=== PATIENT | female | born 1960 | race Caucasian/White ===

== ENCOUNTER 2020-01-10 11:22 | Emergency (ER) | payer BC ==
[2020-01-10 11:35] VITALS: BP 127/80; PULSE 71
[2020-01-10] MEDS ORDERED: Metoclopramide 10 MG/2 ML SDV IVPUSH ONE (12:07)
[2020-01-10] MEDS ORDERED: Dicyclomine 10 MG Cap PO ONE (12:09)
[2020-01-10] MEDS ORDERED: Sodium Chloride 0.9% 1,000 ML IV SCH (12:15)
--- NOTE | 2020-01-10 12:16 | EDM.PDOC ---
ED HPI GENERAL MEDICAL PROBLEM - General Chief Complaint: Gastrointestinal Problem Stated Complaint: SOB,CRAMPING,DIARRHEA Time Seen by Provider: 01/10/20 11:50 Source of Information: Reports: Patient, RN Notes Reviewed History Limitations: Reports: No Limitations - History of Present Illness INITIAL COMMENTS - FREE TEXT/NARRATIVE: Patient is a 59-year-old female who presents to the ED for the evaluation of ongoing diarrhea. Patient notes that this all started on Thursday, and she states that she had around 7 loose/watery stools on Thursday alone. She does note that she had some bright red bleeding per rectum as well. The patient states that she is having pretty diffuse abdominal cramping, that is sharp at times, and better at some other times. Patient states that she is somewhat dizzy/lightheaded when she stands, little bit nauseated, but no vomiting. Patient notes a positive history of C. difficile around 6 years ago, but she denies any sort of recent antibiotic use. Patient did state that she has a issue with chronic headaches, did have a migraine Thursday and Thursday and took Imitrex for this and it seemed to make the headaches better. Patient states she does feel a little bit short of breath/fatigued when she tries to walk, but was wondering if this was not due to the dehydration. Patient states she has been taking some Tylenol for her pains, and it has not really helped much. The notes that he believes she may have had some raw chicken, or farm eggs he was wondering that did not cause some of her issues. Patient does have a positive history for diverticulosis, C. difficile, and endometriosis. Patient has had 2 laparoscopic surgeries for the endometriosis, and a hysterectomy. Patient had a colonoscopy, and was told she had diverticulosis, and longer intestines than normal. Patient's primary care provider is in [facility]. Bilateral Lower Abdomen Pain Score (Numeric/FACES): 5 - Related Data Allergies Allergy/AdvReac Type Severity Reaction Status Date / Time alfalfa Allergy Headache Verified 01/10/20 11:38 banana Allergy Headache Verified 01/10/20 11:38 harrison Allergy Headache Verified 01/10/20 11:38 cantaloupe Allergy Headache Verified 01/10/20 11:38 celery Allergy Headache Verified 01/10/20 11:38 redding Allergy Headache Verified 01/10/20 11:38 chocolate flavor Allergy Headache Verified 01/10/20 11:38 cranberry Allergy Headache Verified 01/10/20 11:38 lentils Allergy Headache Verified 01/10/20 11:38 milk Allergy Headache Verified 01/10/20 11:38 pumpkin Allergy Headache Verified 01/10/20 11:38 sesame seed Allergy Headache Verified 01/10/20 11:38 tomato Allergy Headache Verified 01/10/20 11:38 tree nut [Pecans] Allergy Headache Verified 01/10/20 11:38 walnut Allergy Headache Verified 01/10/20 11:38 Yeast Allergy Headache Verified 01/10/20 11:38 Home Meds: Home Meds Acetaminophen [Mapap] 500 mg PO DAILY PRN 02/11/16 [History] Clobetasol [Clobetasol 0.05%] 1 appful VAG DAILY 02/11/16 [History] Estrogens, Conjugated [Premarin Vaginal Crm] 1 appful VAG DAILY 02/11/16 [ History] Multivit,Calc,Mins/Iron/Folic [Women's Daily Formula Caplet] 1 tab PO DAILY [History] SUMAtriptan [Imitrex] 25 mg PO DAILY PRN 01/10/20 [History] guaiFEN/Phenyleph/Acetaminophn [Sudafed PE Head Cngst-Mucus Tb] 1 tab PO Q4HR [History] Past Medical History HEENT History: Reports: Impaired Vision Other HEENT History: wears glasses Respiratory History: Reports: SOB Gastrointestinal History: Reports: Diverticulosis, GERD BABCOCK TESTER History: Reports: Endometriosis Musculoskeletal History: Reports: Other (See Below) Other Musculoskeletal History: frozen shoulder, tendonitis in wrist Neurological History: Reports: Migraines Psychiatric History: Reports: Anxiety - Infectious Disease History Infectious Disease History: Reports: C-Difficile, Chicken Pox, Measles - Past Surgical History HEENT Surgical History: Reports: Cataract Surgery, Naso-Sinus Surgery GI Surgical History: Reports: Appendectomy, Colonoscopy Female Surgical History: Reports: Hysterectomy, Other (See Below) Other Female Surgeries/Procedures: laparoscopy x 2 for endometriosis Social & Family History - Family History Family Medical History: Noncontributory - Tobacco Use Smoking Status *Q: Former Smoker Used Tobacco, but Quit: Yes Month/Year Tobacco Last Used: 1980 - Caffeine Use Caffeine Use: Reports: Coffee, Tea - Recreational Drug Use Recreational Drug Use: Yes Recreational Drug Type: Reports: Marijuana/Hashish - Living Situation & Occupation Living situation: Reports: , with Family Occupation: Unemployed ED ROS GENERAL - Review of Systems Review Of Systems: See Below Constitutional: Reports: Chills, Fatigue (generalized), Decreased Appetite. Denies: Fever Respiratory: Reports: Shortness of Breath (while walking) GI/Abdominal: Reports: Abdominal Pain (generalized), Bloody Stool (bright red loose bloody stools per rectum, pt had pictures), Diarrhea, Decreased Appetite, Nausea. Denies: Vomiting : Denies: Dysuria, Frequency, Urgency Neurological: Reports: Dizziness ED EXAM, GI/ABD - Physical Exam Exam: See Below Exam Limited By: No Limitations General Appearance: Alert, WD/WN, No Apparent Distress Eyes: Bilateral: Normal Appearance Ears: Normal External Exam Nose: Normal Inspection Throat/Mouth: Normal Inspection, Normal Lips, Normal Teeth, Normal Gums, Normal Oropharynx, Normal Voice, No Airway Compromise Head: Atraumatic, Normocephalic Neck: Normal Inspection Respiratory/Chest: No Respiratory Distress, Lungs Clear, Normal Breath Sounds, No Accessory Muscle Use, Chest Non-Tender Cardiovascular: Normal Peripheral Pulses, Regular Rate, Rhythm, No Murmur GI/Abdominal Exam: Normal Bowel Sounds, Soft, No Distention, No Mass, Tender ( generalized tenderness) Rectal (Female) Exam: Deferred, Bloody Stool (pt did show me pictures of her stools) Extremities: Normal Inspection, Normal Capillary Refill Neurological: Alert, Oriented, Normal Cognition, No Motor/Sensory Deficits Psychiatric: Anxious (pt appears apprehensive, otherwise within normal limits) Skin Exam: Warm, Dry, Intact, Normal Color, No Rash Course - Vital Signs Last Recorded V/S: Last Vital Signs Temp 98.6 F 01/10/20 11:30 Pulse 71 01/10/20 11:30 Resp 18 01/10/20 11:30 BP 127/80 01/10/20 11:30 Pulse Ox 100 01/10/20 11:30 - Orders/Labs/Meds Orders: Active Orders 24 hr Category Date Time Status STOOL CULTURE/SHIGA TOXIN [MREF] Stat Lab 01/10/20 12:08 Ordered Sodium Chloride 0.9% [Normal Saline] 1,000 ml Med 01/10/20 12:15 Active IV ASDIRECTED Medication Orders Sodium Chloride (Normal Saline) 1,000 mls @ 999 mls/hr IV ASDIRECTED [place]ER[place] Last Admin: 01/10/20 12:20 Dose: 999 mls/hr Labs: Laboratory Tests 01/10/20 01/10/20 01/10/20 Range/Units 12:20 12:20 13:00 WBC 5.43 (3.98-10.04) K/mm3 RBC 4.89 (3.98-5.22) M/mm3 Hgb 14.8 (11.2-15.7) gm/dl Hct 43.5 (34.1-44.9) % MCV 89.0 (79.4-94.8) fl MCH 30.3 (25.6-32.2) pg MCHC 34.0 (32.2-35.5) g/dl RDW Std Deviation 40.7 (36.4-46.3) fL Plt Count 201 (182-369) K/mm3 MPV 10.3 (9.4-12.3) fl Neutrophils % (Manual) 68 H (40-60) % Band Neutrophils % 0 (0-10) % Lymphocytes % (Manual) 26 (20-40) % Atypical Lymphs % 0 % Monocytes % (Manual) 5 (2-10) % Eosinophils % (Manual) 0 L (0.7-5.8) % Basophils % (Manual) 1 (0.1-1.2) Platelet Estimate Adequate Plt Morphology Comment Normal RBC Morph Comment Normal Sodium 142 (136-145) mEq/L Potassium 4.3 (3.5-5.1) mEq/L Chloride 107 (98-107) mEq/L Carbon Dioxide 27 (21-32) mEq/L Anion Gap 12.3 (5-15) BUN 12 (7-18) mg/dL Creatinine 0.9 (0.55-1.02) mg/dL Est Cr Clr Drug Dosing 57.40 mL/min Estimated GFR (MDRD) > 60 (>60) mL/min BUN/Creatinine Ratio 13.3 L (14-18) Glucose 96 (74-106) mg/dL Calcium 9.2 (8.5-10.1) mg/dL Total Bilirubin 0.6 (0.2-1.0) mg/dL AST 14 L (15-37) U/L ALT 29 (14-59) U/L Alkaline Phosphatase 69 (46-116) U/L Total Protein 7.5 (6.4-8.2) g/dl Albumin 3.9 (3.4-5.0) g/dl Globulin 3.6 gm/dL Albumin/Globulin Ratio 1.1 (1-2) Urine Color Yellow (Yellow) Urine Appearance Clear (Clear) Urine pH 7.5 (5.0-8.0) Ur Specific Petty 1.020 (1.005-1.030) Urine Protein Negative (Negative) Urine Glucose (UA) Negative (Negative) Urine Ketones Negative (Negative) Urine Occult Blood Negative (Negative) Urine Nitrite Negative (Negative) Urine Bilirubin Negative (Negative) Urine Urobilinogen 0.2 (0.2-1.0) Ur Leukocyte Esterase Negative (Negative) Urine RBC Not seen (0-5) /hpf Urine WBC Not seen (0-5) /hpf Ur Squamous Epith Cells 0-5 (0-5) /hpf Urine Bacteria Not seen (FEW) /hpf Urine Mucus Not seen (FEW) /hpf C.difficile [id number] C. difficile Tox (PCR) 01/10/20 Range/Units 13:00 WBC (3.98-10.04) K/mm3 RBC (3.98-5.22) M/mm3 Hgb (11.2-15.7) gm/dl Hct (34.1-44.9) % MCV (79.4-94.8) fl MCH (25.6-32.2) pg MCHC (32.2-35.5) g/dl RDW Std Deviation (36.4-46.3) fL Plt Count (182-369) K/mm3 MPV (9.4-12.3) fl Neutrophils % (Manual) (40-60) % Band Neutrophils % (0-10) % Lymphocytes % (Manual) (20-40) % Atypical Lymphs % % Monocytes % (Manual) (2-10) % Eosinophils % (Manual) (0.7-5.8) % Basophils % (Manual) (0.1-1.2) Platelet Estimate Plt Morphology Comment RBC Morph Comment Sodium (136-145) mEq/L Potassium (3.5-5.1) mEq/L Chloride (98-107) mEq/L Carbon Dioxide (21-32) mEq/L Anion Gap (5-15) BUN (7-18) mg/dL Creatinine (0.55-1.02) mg/dL Est Cr Clr Drug Dosing mL/min Estimated GFR (MDRD) (>60) mL/min BUN/Creatinine Ratio (14-18) Glucose (74-106) mg/dL Calcium (8.5-10.1) mg/dL Total Bilirubin (0.2-1.0) mg/dL AST (15-37) U/L ALT (14-59) U/L Alkaline Phosphatase (46-116) U/L Total Protein (6.4-8.2) g/dl Albumin (3.4-5.0) g/dl Globulin gm/dL Albumin/Globulin Ratio (1-2) Urine Color (Yellow) Urine Appearance (Clear) Urine pH (5.0-8.0) Ur Specific Petty (1.005-1.030) Urine Protein (Negative) Urine Glucose (UA) (Negative) Urine Ketones (Negative) Urine Occult Blood (Negative) Urine Nitrite (Negative) Urine Bilirubin (Negative) Urine Urobilinogen (0.2-1.0) Ur Leukocyte Esterase (Negative) Urine RBC (0-5) /hpf Urine WBC (0-5) /hpf Ur Squamous Epith Cells (0-5) /hpf Urine Bacteria (FEW) /hpf Urine Mucus (FEW) /hpf C.difficile [id number] Presumptive negative C. difficile Tox (PCR) Negative Meds: Medications Generic Name Dose Route Start Last Admin Trade Name Freq PRN Reason Stop Dose Admin Sodium Chloride 1,000 mls @ 999 mls/hr 01/10/20 12:15 01/10/20 12:20 Normal Saline IV 999 mls/hr ASDIRECTED GERMANIA Administration Discontinued Medications Generic Name Dose Route Start Last Admin Trade Name Freq PRN Reason Stop Dose Admin Diatrizoate Meglum/Diatrizoate Sod 90 ml 01/10/20 12:38 01/10/20 13:37 Gastrografin 37% PO 01/10/20 12:39 45 ml ONETIME ONE Administration Dicyclomine HCl 20 mg 01/10/20 12:09 01/10/20 12:20 Bentyl PO 01/10/20 12:10 20 mg ONETIME ONE Administration Hydromorphone HCl 0.5 mg 01/10/20 14:46 01/10/20 14:55 Dilaudid IVPUSH 01/10/20 14:47 0.5 mg ONETIME ONE Administration Sodium Chloride 1,000 mls @ 999 mls/hr 01/10/20 14:46 01/10/20 14:54 Normal Saline IV 01/10/20 15:46 999 mls/hr ONETIME ONE Administration Iopamidol 100 ml 01/10/20 12:38 01/10/20 13:38 Isovue-300 (61%) IVPUSH 01/10/20 12:39 100 ml ONETIME ONE Administration Loperamide HCl 4 mg 01/10/20 14:47 01/10/20 14:56 Imodium PO 01/10/20 14:48 4 mg ONETIME ONE Administration Metoclopramide HCl 10 mg 01/10/20 12:07 01/10/20 12:20 Reglan IVPUSH 01/10/20 12:08 10 mg ONETIME ONE Administration Sodium Chloride 10 ml 01/10/20 12:38 01/10/20 13:38 Saline Flush FLUSH 01/10/20 12:39 10 ml ONETIME ONE Administration - Re-Assessments/Exams Free Text/Narrative Re-Assessment/Exam: 01/10/20 12:19 Patient presents to the ED for her ongoing diarrhea. I have ordered some labs, stools studies if she is able to provide a sample, IVF, meds and an abdomen/ pelvis CT with oral and IV contrast for initial management and evaluation. Departure - Departure Time of Disposition: 15:46 Disposition: Home, Self-Care 01 Condition: Fair Clinical Impression: Abdominal cramps Diarrhea Qualifiers: Diarrhea type: unspecified type Qualified Code(s): R19.7 - Diarrhea, unspecified - Discharge Information *PRESCRIPTION DRUG MONITORING PROGRAM REVIEWED*: No *COPY OF PRESCRIPTION DRUG MONITORING REPORT IN PATIENT ALVARO: No Instructions: Diarrhea, Adult, [id number], Probiotics Referrals: PCP,None [Primary Care Provider] - Forms: ED Department Discharge Additional Instructions: You have been evaluated in the ED for nausea/diarrhea. It is likely that this is caused from a viral gastroenteritis. Your laboratory evaluation demonstrates no infectious etiology at today's visit. Your C. difficile at today's visit was negative, there are some stool studies pending as these are send outs, you will be called and made notified if you should need treatment as the results are given to us. You have received IV fluid in the ED to help with the dehydration from the diarrhea. Over the next 24-48 hours please try to limit diet to clear liquids and advance as tolerate to a bland diet to alleviate symptoms of nausea/diarrhea. Please use the Zofran every 8 hours as needed for nausea, you were given some dicyclomine, which is for abdominal cramping, please take 1 tab 4 times daily as needed. Recommend you try to incorporate probiotics in your diet as well, ask a pharmacist for recommendation and they should be able to pick you a decent one to use. Recommend you follow-up with your primary care provider, within the next week for an ER follow-up visit. Your CT demonstrated no infectious etiology at today 's visit, but did question colitis within the sigmoid and rectum. Please return to the ED if your symptoms should change or worsen. Sepsis Event Note - Evaluation Sepsis Screening Result: No Definite Risk - Focused Exam Vital Signs: Vital Signs Temp Pulse Resp BP Pulse Ox 01/10/20 11:30 98.6 F 71 18 127/80 100 Date Exam was Performed: 01/10/20 Time Exam was Performed: 15:52 - My Orders Last 24 Hours: My Active Orders 01/10/20 12:08 STOOL CULTURE/SHIGA TOXIN [MREF] Stat 01/10/20 12:15 Sodium Chloride 0.9% [Normal Saline] 1,000 ml IV ASDIRECTED - Assessment/Plan Last 24 Hours: My Active Orders 01/10/20 12:08 STOOL CULTURE/SHIGA TOXIN [MREF] Stat 01/10/20 12:15 Sodium Chloride 0.9% [Normal Saline] 1,000 ml IV ASDIRECTED
[2020-01-10] MEDS ORDERED: Iopamidol 612 MG/ML 100 ML Bottle IVPUSH ONE (12:38)
[2020-01-10] MEDS ORDERED: Diatrizoate Meglumine/Diatrizoate Sodium 37% 120 ML Bottle PO ONE (12:38)
[2020-01-10] MEDS ORDERED: Sodium Chloride 0.9% 10 ML Syringe FLUSH ONE (12:38)
--- NOTE | 2020-01-10 14:10 | CT ---
CT abdomen and pelvis Technique: Multiple axial sections were obtained from above the dome of the diaphragm inferiorly through the pubic symphysis. Intravenous contrast and oral contrast was utilized. Delayed images were also obtained through the bladder. Comparison: Prior CT abdomen and pelvis exam of 07/20/12. Findings: Visualized lung bases show nothing acute. Liver contains no focal parenchymal abnormality. Spleen appears within normal limits. Adrenal glands show no nodule. Pancreas shows no discrete abnormality. Kidneys show symmetric contrast enhancement without hydronephrosis or mass. Gallbladder contains no calcified gallstones. Aorta shows no aneurysm. No retroperitoneal adenopathy or mesenteric abnormalities are seen. No pelvic mass or adenopathy is seen. No free fluid or inflammatory change is seen. Delayed images shows contrast within distal ureters and within the bladder. Bone window settings were reviewed which shows no acute osseous finding. Appendix not seen with certainty. Questionable bowel wall/mucosal thickening within the sigmoid colon and rectum. Impression: 1. Questionable bowel wall thickening/mucosal thickening within the sigmoid and rectum. Difficult to completely exclude proctitis and colitis. This may also relate to poor distention. 2. No additional abnormality is appreciated on CT study of the abdomen and pelvis. Diagnostic code #3 This report was dictated in MDT
[2020-01-10] MEDS ORDERED: Sodium Chloride 0.9% 1,000 ML IV ONE (14:46)
[2020-01-10] MEDS ORDERED: HYDROmorphone 0.5 MG/0.5 ML Syringe IVPUSH ONE (14:46)
[2020-01-10] MEDS ORDERED: Loperamide 2 MG Cap PO ONE (14:47)
== END 2020-01-10 16:43 | disposition home or self-care (01) ==
LOC: JD.ED 11:22
DX: R10.84 Generalized abdominal pain (principal); R19.7 Diarrhea, unspecified; Z87.891 Personal history of nicotine dependence; Z90.49 Acquired absence of other specified parts of digestive tract; Z91.018 Allergy to other foods; Z91.011 Allergy to milk products; Z79.899 Other long term (current) drug therapy
CPT/HCPCS: 36415; 74177; 80053; 81001; 85007; 85027; 87045; 87046; 87493; 87899; 89055; 96361; 96374; 96375; 99285; A9270; J1170; J2765; J7030; Q9963; Q9967; 99284

== ENCOUNTER 2020-07-19 11:52 | Emergency (ER) | payer BC ==
[2020-07-19 12:01] VITALS: BP 129/85; PULSE 65
[2020-07-19] MEDS ORDERED: Sodium Chloride 0.9% 10 ML Syringe FLUSH PRN (12:05)
--- NOTE | 2020-07-19 12:08 | EDM.PDOC ---
ED HPI GENERAL MEDICAL PROBLEM - General Chief Complaint: Chest Pain Stated Complaint: CHEST PAIN AND SOB Time Seen by Provider: 07/19/20 11:58 Source of Information: Reports: Patient, RN Notes Reviewed History Limitations: Reports: No Limitations - History of Present Illness INITIAL COMMENTS - FREE TEXT/NARRATIVE: Patient is a 60-year-old female who presents to the ED for the evaluation of her chest tightness. Patient notes that she woke up this morning, and she noticed some chest pressure/tightness, in her mid chest that radiates somewhat to her left. She states it also kind of radiated up to her throat/neck, and into her back. She states she is not really felt this pain before ever. She notes that she went about her day, went to the clinic for rehab on her left foot, but she decided to come to the ER to have her chest pain checked out. She did have a baby aspirin at around 9 AM, due to her chest discomfort. She does note that she is having ongoing issues with her stomach, and is scheduled for an EGD on along with a colonoscopy. She does also states she has a history of endometriosis. She does state that she is having some abdominal discomfort, but chalks it up to that. She is complaining of some mild shortness of breath, being somewhat weak, and fatigued. She has not had any fevers or chills, cough, she states she has some discomfort in her throat. But she has not had any known sick contacts. Her primary care provider is from [place], but she is transferring her records to [facility] so she can have a provider in [place]. She further states she may have had some diarrhea earlier this week, but this has since subsided. She is not complaining of any nausea/vomiting/diarrhea at this time. Treatments ACTIVE DIRECTORY ADMINISTRATOR: Reports: Other (see below) Other Treatments ACTIVE DIRECTORY ADMINISTRATOR: asa Chest Pain Score (Numeric/FACES): 6 - Related Data Allergies Allergy/AdvReac Type Severity Reaction Status Date / Time alfalfa Allergy Headache Verified 01/10/20 11:38 banana Allergy Headache Verified 01/10/20 11:38 harrison Allergy Headache Verified 01/10/20 11:38 cantaloupe Allergy Headache Verified 01/10/20 11:38 celery Allergy Headache Verified 01/10/20 11:38 redding Allergy Headache Verified 01/10/20 11:38 chocolate flavor Allergy Headache Verified 01/10/20 11:38 cranberry Allergy Headache Verified 01/10/20 11:38 lentils Allergy Headache Verified 01/10/20 11:38 milk Allergy Headache Verified 01/10/20 11:38 pumpkin Allergy Headache Verified 01/10/20 11:38 sesame seed Allergy Headache Verified 01/10/20 11:38 tomato Allergy Headache Verified 01/10/20 11:38 tree nut [Pecans] Allergy Headache Verified 01/10/20 11:38 walnut Allergy Headache Verified 01/10/20 11:38 Yeast Allergy Headache Verified 01/10/20 11:38 Home Meds: Home Meds Acetaminophen [Mapap] 500 mg PO DAILY PRN 02/11/16 [History] Clobetasol [Clobetasol 0.05%] 1 appful VAG DAILY 02/11/16 [History] Estrogens, Conjugated [Premarin Vaginal Crm] 1 appful VAG DAILY 02/11/16 [History] Multivit,Calc,Mins/Iron/Folic [Women's Daily Formula Caplet] 1 tab PO DAILY 02/11/16 [History] SUMAtriptan [Imitrex] 100 mg PO DAILY PRN 01/10/20 [History] guaiFEN/Phenyleph/Acetaminophn [Sudafed PE Head Cngst-Mucus Tb] 1 tab PO Q4HR 01/10/20 [History] Past Medical History HEENT History: Reports: Impaired Vision Other HEENT History: wears glasses Respiratory History: Reports: SOB Gastrointestinal History: Reports: Diverticulosis, GERD 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 Musculoskeletal History: Reports: Other (See Below) Other Musculoskeletal History: frozen shoulder, tendonitis in wrist Neurological History: Reports: Migraines Psychiatric History: Reports: Anxiety - Infectious Disease History Infectious Disease History: Reports: C-Difficile, Chicken Pox, Measles - Past Surgical History HEENT Surgical History: Reports: Cataract Surgery, Naso-Sinus Surgery GI Surgical History: Reports: Appendectomy, Colonoscopy Female Surgical History: Reports: Hysterectomy, Other (See Below) Other Female Surgeries/Procedures: laparoscopy x 2 for endometriosis Social & Family History - Family History Family Medical History: Noncontributory - Caffeine Use Caffeine Use: Reports: Coffee, Tea - Living Situation & Occupation Living situation: Reports: , with Family Occupation: Unemployed ED ROS GENERAL - Review of Systems Review Of Systems: Comprehensive ROS is negative, except as noted in HPI. ED EXAM, GENERAL - Physical Exam Exam: See Below Exam Limited By: No Limitations General Appearance: Alert, WD/WN, No Apparent Distress Throat/Mouth: Normal Inspection, Normal Lips, Normal Teeth, Normal Gums, Normal Oropharynx, Normal Voice, No Airway Compromise Respiratory/Chest: No Respiratory Distress, Lungs Clear, Normal Breath Sounds, No Accessory Muscle Use, Chest Non-Tender Cardiovascular: Normal Peripheral Pulses, Regular Rate, Rhythm, No Murmur Peripheral Pulses: 2+: Radial (L), Radial (R) GI/Abdominal: Normal Bowel Sounds, Soft, Non-Tender, No Distention, No Mass Neurological: Alert, Oriented, Normal Cognition, No Motor/Sensory Deficits Psychiatric: Normal Affect, Normal Mood Skin Exam: Warm, Dry, Intact, Normal Color, No Rash EKG INTERPRETATION EKG Date: 07/19/20 Time: 12:02 Rhythm: NSR Rate (Beats/Min): 60 [place]: Normal P-Wave: Present QRS: Normal ST-T: Normal QT: Normal Comparison: No Change EKG Interpretation Comments: No obvious ischemia or acute ST changes noted, reviewed by myself and Dr. Murray. Course - Vital Signs Last Recorded V/S: Last Vital Signs Temp 98.0 F 07/19/20 11:59 Pulse 65 07/19/20 11:59 Resp 20 07/19/20 11:59 BP 129/85 07/19/20 11:59 Pulse Ox 100 07/19/20 11:59 - Orders/Labs/Meds Orders: Active Orders 24 hr Category Date Time Status EKG Documentation Completion [RC] STAT Care 07/19/20 12:05 Ordered Peripheral IV Care [RC] . DIRECTED Care 07/19/20 12:05 Ordered Chest 1V Frontal [CR] Stat Exams 07/19/20 12:05 Ordered PRO B-TYPE NATRIUR PEPT,BNPPRO [CHEM] Stat Lab 07/19/20 12:05 Ordered Sodium Chloride 0.9% [Saline Flush] Med 07/19/20 12:05 Ordered 10 ml FLUSH ASDIRECTED PRN Peripheral IV Insertion Adult [OM.PC] Stat Oth 07/19/20 12:05 Ordered Medication Orders Sodium Chloride (Saline Flush) 10 ml FLUSH ASDIRECTED PRN PRN Reason: Keep Vein Open Last Admin: 07/19/20 12:17 Dose: 10 ml Documented by: BLADE Labs: Laboratory Tests 07/19/20 07/19/20 07/19/20 Range/Units 12:10 12:10 12:10 WBC 6.01 (3.98-10.04) K/mm3 RBC 4.64 (3.98-5.22) M/mm3 Hgb 14.0 (11.2-15.7) gm/dl Hct 41.7 (34.1-44.9) % MCV 89.9 (79.4-94.8) fl MCH 30.2 (25.6-32.2) pg MCHC 33.6 (32.2-35.5) g/dl RDW Std Deviation 41.8 (36.4-46.3) fL Plt Count 195 (182-369) K/mm3 MPV 10.3 (9.4-12.3) fl Neut % (Auto) 67.9 (34.0-71.1) % Lymph % (Auto) 23.5 (19.3-51.7) % [place] % (Auto) 8.0 (4.7-12.5) % Eos % (Auto) 0.3 L (0.7-5.8) Baso % (Auto) 0.3 (0.1-1.2) % Neut # (Auto) 4.08 (1.56-6.13) K/mm3 Lymph # (Auto) 1.41 (1.18-3.74) K/mm3 [place] # (Auto) 0.48 H (0.24-0.36) K/mm3 Eos # (Auto) 0.02 L (0.04-0.36) K/mm3 Baso # (Auto) 0.02 (0.01-0.08) K/mm3 PT 10.9 (9.7-11.7) SECONDS INR 1.02 APTT 28 (22-31) SECONDS Sodium 135 L (136-145) mEq/L Potassium 4.2 (3.5-5.1) mEq/L Chloride 103 (98-107) mEq/L Carbon Dioxide 29 (21-32) mEq/L Anion Gap 7.2 (5-15) BUN 15 (7-18) mg/dL Creatinine 1.0 (0.55-1.02) mg/dL Est Cr Clr Drug Dosing 51.02 mL/min Estimated GFR (MDRD) 56 (>60) mL/min BUN/Creatinine Ratio 15.0 (14-18) Glucose 90 (80-115) mg/dL Calcium 9.2 (8.5-10.1) mg/dL Magnesium 1.8 (1.8-2.4) mg/dl Total Bilirubin 0.5 (0.2-1.0) mg/dL AST 14 L (15-37) U/L ALT 24 (14-59) U/L Alkaline Phosphatase 73 (46-116) U/L Troponin I < 0.017 (0.00-0.056) ng/mL Total Protein 7.3 (6.4-8.2) g/dl Albumin 3.8 (3.4-5.0) g/dl Globulin 3.5 gm/dL Albumin/Globulin Ratio 1.1 (1-2) Meds: Medications Generic Name Dose Route Start Last Admin Trade Name Freq PRN Reason Stop Dose Admin Sodium Chloride 10 ml 07/19/20 12:05 07/19/20 12:17 Saline Flush FLUSH 10 ml ASDIRECTED PRN Administration Keep Vein Open - Re-Assessments/Exams Free Text/Narrative Re-Assessment/Exam: 07/19/20 12:23 Patient presents to the ED for the evaluation of her chest pain/pressure. Labs will be obtained, EKG was taken and appears to have no acute ischemic changes. Chest x-ray also appears to be within normal limits. 07/19/20 13:18 Patient's labs have resulted, and demonstrate no focal abnormalities. She will be discharged home with general recommendations have her follow-up with Bertha Gonsalez for further cardiac testing as warranted like stress test/echo, etc. Departure - Departure Time of Disposition: 13:19 Disposition: Home, Self-Care 01 Condition: Good Clinical Impression: Chest discomfort Instructions: Nonspecific Chest Pain, Adult, [id number] Referrals: Bertha Gonsalez RN DELIVERY [Primary Care Provider] - Forms: ED Department Discharge Additional Instructions: You were seen in this ER for your ongoing chest pain. Your work-up in the ER today included EKG, chest x-ray, and lab work, all of which show no signs of acute CO or other cardiac etiology, this is reassuring. You are not suffering from a heart attack at today's visit. I recommend you follow-up with Bertha Gonsalez for further cardiac testing like stress test/echo, for further evaluation of your heart. You may try 500 mg Tylenol every 6 hours as needed for further chest wall discomfort. You may also try heat packs to the area, to see if this helps relieve some of your discomfort. Please continue all other medications as previously prescribed, and follow-up with the surgeon on for your colonoscopy/EGD as previously scheduled. Please return to the ER at any time if symptoms change or worsen. Sepsis Event Note (ED) - Evaluation Sepsis Screening Result: No Definite Risk - Focused Exam Vital Signs: Vital Signs Temp Pulse Resp BP Pulse Ox 07/19/20 11:59 98.0 F 65 20 129/85 100 - My Orders Last 24 Hours: My Active Orders 07/19/20 12:05 EKG Documentation Completion [RC] STAT Peripheral IV Care [RC] . DIRECTED Chest 1V Frontal [CR] Stat PRO B-TYPE NATRIUR PEPT,BNPPRO [CHEM] Stat Sodium Chloride 0.9% [Saline Flush] 10 ml FLUSH ASDIRECTED PRN Peripheral IV Insertion Adult [OM.PC] Stat - Assessment/Plan Last 24 Hours: My Active Orders 07/19/20 12:05 EKG Documentation Completion [RC] STAT Peripheral IV Care [RC] . DIRECTED Chest 1V Frontal [CR] Stat PRO B-TYPE NATRIUR PEPT,BNPPRO [CHEM] Stat Sodium Chloride 0.9% [Saline Flush] 10 ml FLUSH ASDIRECTED PRN Peripheral IV Insertion Adult [OM.PC] Stat
== END 2020-07-19 13:34 | disposition home or self-care (01) ==
LOC: JD.ED 11:52
DX: R07.89 Other chest pain (principal); Z91.018 Allergy to other foods; Z91.048 Other nonmedicinal substance allergy status; Z88.8 Allergy status to other drugs, medicaments and biological substances
CPT/HCPCS: 36415; 71045; 80053; 83735; 83880; 84484; 85025; 85610; 85730; 93005; 93010; 99283; 99285-25

== ENCOUNTER 2020-10-30 13:49 | Emergency (ER) | payer BC ==
[2020-10-30] MEDS ORDERED: Sodium Chloride 0.9% 10 ML Syringe FLUSH PRN (14:15)
[2020-10-30] MEDS ORDERED: Sodium Chloride 0.9% 1,000 ML IV STA (14:15)
[2020-10-30] MEDS ORDERED: Ondansetron 4 MG/2 ML SDV IVPUSH ONE (14:15)
[2020-10-30] MEDS ORDERED: HYDROmorphone 1 MG/ML Syringe IVPUSH ONE (14:16)
--- NOTE | 2020-10-30 14:19 | EDM.PDOC ---
<Clair Best - Last Filed: 10/30/20 15:44> ED HPI GENERAL MEDICAL PROBLEM - General Chief Complaint: Gastrointestinal Problem Stated Complaint: MIGRAINE WITH VOMITING Time Seen by Provider: 10/30/20 13:56 Source of Information: Reports: Patient History Limitations: Reports: No Limitations - History of Present Illness INITIAL COMMENTS - FREE TEXT/NARRATIVE: Tracie is a 60 year old female in a moderate amout of distress presenting to the ED with nausea, vomiting, diarrhea and migraine. She states this started yesterday when she woke up with stomach cramps and proceeded to have 11 bowel movements. She describes the bowel movements as formed, then later in the day they became more lose. She denies any bloody in stool. She woke up today with a migraine and took prescribed Imitrex without relief. She states she vomited four times today and described it as "green" and had four formed bowel movements today. She has associated sinus pain, dizziness, shaking, and hot/cold intolerance. She states that she has a history of diverticulitis and endometriosis. She recently underwent endoscopy, colonoscopy and CT and was diagnosed with a gastric ulcer. She denies any sick contacts or fevers as of recently. Headache Pain Score (Numeric/FACES): 10 Abdominal Pain Score (Numeric/FACES): 9 - Related Data Allergies Allergy/AdvReac Type Severity Reaction Status Date / Time alfalfa Allergy Headache Verified 10/30/20 14:02 banana Allergy Headache Verified 10/30/20 14:02 harrison Allergy Headache Verified 10/30/20 14:02 cantaloupe Allergy Headache Verified 10/30/20 14:02 celery Allergy Headache Verified 10/30/20 14:02 redding Allergy Headache Verified 10/30/20 14:02 chocolate flavor Allergy Headache Verified 10/30/20 14:02 cranberry Allergy Headache Verified 10/30/20 14:02 lentils Allergy Headache Verified 10/30/20 14:02 milk Allergy Headache Verified 10/30/20 14:02 pumpkin Allergy Headache Verified 10/30/20 14:02 sesame seed Allergy Headache Verified 10/30/20 14:02 tomato Allergy Headache Verified 10/30/20 14:02 tree nut [Pecans] Allergy Headache Verified 10/30/20 14:02 walnut Allergy Headache Verified 10/30/20 14:02 Yeast Allergy Headache Verified 10/30/20 14:02 Home Meds: Home Meds Acetaminophen [Mapap] 500 mg PO DAILY PRN 02/11/16 [History] Clobetasol [Clobetasol 0.05%] 1 appful VAG ASDIRECTED 02/11/16 [History] Estrogens, Conjugated [Premarin Vaginal Crm] 1 appful VAG ASDIRECTED 02/11/16 [History] SUMAtriptan [Imitrex] 100 mg PO DAILY PRN 01/10/20 [History] guaiFEN/Phenyleph/Acetaminophn [Sudafed PE Head Cngst-Mucus Tb] 1 tab PO Q4HR PRN 01/10/20 [History] Ondansetron [Zofran ODT] 4 mg PO Q6H PRN #20 tab.dis 10/30/20 [Rx] traMADol [Ultram] 50 - 100 mg PO Q6H PRN #15 tab 10/30/20 [Rx] Past Medical History HEENT History: Reports: Impaired Vision Other HEENT History: wears glasses Respiratory History: Reports: SOB Gastrointestinal History: Reports: Diverticulosis, GERD [employer]REST[employer] History: Reports: Endometriosis Musculoskeletal History: Reports: Other (See Below) Other Musculoskeletal History: frozen shoulder, tendonitis in wrist Neurological History: Reports: Migraines Psychiatric History: Reports: Anxiety - Infectious Disease History Infectious Disease History: Reports: C-Difficile, Chicken Pox, Measles - Past Surgical History HEENT Surgical History: Reports: Cataract Surgery, Naso-Sinus Surgery GI Surgical History: Reports: Appendectomy, Colonoscopy Other GI Surgeries/Procedures: laparoscopy Female Surgical History: Reports: Hysterectomy, Other (See Below) Other Female Surgeries/Procedures: laparoscopy x 2 for endometriosis Musculoskeletal Surgical History: Reports: None Social & Family History - Family History Family Medical History: No Pertinent Family History - Tobacco Use Tobacco Use Status *Q: Never Tobacco User - Caffeine Use Caffeine Use: Reports: Coffee - Recreational Drug Use Recreational Drug Use: No - Living Situation & Occupation Living situation: Reports: , with Family Occupation: Unemployed ED ROS GENERAL - Review of Systems Review Of Systems: Comprehensive ROS is negative, except as noted in HPI. ED EXAM, GI/ABD - Physical Exam Exam: See Below Exam Limited By: No Limitations General Appearance: Alert, WD/WN, Moderate Distress Head: Atraumatic, Normocephalic Respiratory/Chest: No Respiratory Distress, Lungs Clear, Normal Breath Sounds, No Accessory Muscle Use, Chest Non-Tender Cardiovascular: Normal Peripheral Pulses, Regular Rate, Rhythm, No Edema, No Gallop, No JVD, No Murmur, No Rub GI/Abdominal Exam: Normal Bowel Sounds, Soft, Non-Tender, No Organomegaly, No Distention, No Abnormal Bruit, No Mass, Pelvis Stable Back Exam: Normal Inspection, Full Range of Motion, NT Extremities: Normal Inspection, Normal Range of Motion, Non-Tender, Normal Capillary Refill, No Pedal Edema Neurological: Alert, Oriented, CN II-XII Intact, Normal Cognition Skin Exam: Warm, Dry, Intact, Normal Color, No Rash Lymphatic: No Adenopathy Course - Re-Assessments/Exams Free Text/Narrative Re-Assessment/Exam: 10/30/20 14:25 Tracie is a 60 year old female presenting the the ED with GI complaints of nausea, vomiting, multiple bowel movements and migraines. She is in a moderate amount of distress and is writhing around on the bed. A CBC, CMP, UA, lipase, CT abdomen/pelvis was ordered. She was given fluid, Zofran and Dilaudid for her migraine and vomiting. Will continue to monitor. 10/30/20 15:13 CBC is unremarkable, CMP shows borderline BUN and mildly elevated glucose. Lipase came back within normal limits. 10/30/20 15:24 CT results show: 1. Diffuse bowel wall thickening appears to be present throughout the colon suspicious for diffuse colitis. Consider endoscopy to further evaluate. 2. No other acute abnormality is appreciated. Patient has recently had colonoscopy, endoscopy and CT scan for the same problems roughly 2 months ago. She was told she had erosions in her stomach. She also has history of diverticulitis. She will be started on Augmentin 825mg/125mg PO q8 hours for 10 days. Departure - Departure Disposition: Home, Self-Care 01 Clinical Impression: Colitis Headache Qualifiers: Headache type: other headache syndrome Qualified Code(s): G44.89 - Other headache syndrome - Discharge Information Prescriptions: traMADol [Ultram] 50 - 100 mg PO Q6H PRN #15 tab PRN Reason: Pain Ondansetron [Zofran ODT] 4 mg PO Q6H PRN #20 tab.dis PRN Reason: Nausea\\vomiting Referrals: Bertha Gonsalez NP [Primary Care Provider] - Joni Madrid MD [Ordering Only Provider] - 1 Week Forms: ED Department Discharge Additional Instructions: Go home and when you have a bowel movement bring us a sample in the sample cups. Drink plenty of fluids. Take the zofran as needed for nausea and vomiting. Take tylenol or motrin for any pain. If that does not help, try the ultram. Start off with a liquid diet and advance as tolerated. Call Dr Lockett's office in the morning. Please return if you are worse. Sepsis Event Note (ED) - Evaluation Sepsis Screening Result: No Definite Risk <Gonzales Murray - Last Filed: 10/30/20 17:18> ED HPI GENERAL MEDICAL PROBLEM - History of Present Illness Onset: Gradual Duration: Day(s): (Yesterday) Location: Reports: Head, Abdomen Quality: Reports: Sharp Severity: Severe Improves with: Reports: None Worsens with: Reports: None Associated Symptoms: Reports: Nausea/Vomiting. Denies: Chest Pain, Cough, Fever/Chills, Headaches ED ROS GENERAL - Review of Systems Review Of Systems: See Below ED EXAM, GI/ABD - Physical Exam Ears: Normal External Exam Nose: Normal Inspection Neck: Normal Inspection Course - Vital Signs Last Recorded V/S: Last Vital Signs Temp 96.1 F L 10/30/20 16:00 Pulse 70 10/30/20 16:00 Resp 16 10/30/20 16:00 BP 95/60 10/30/20 16:00 Pulse Ox 100 10/30/20 16:00 - Orders/Labs/Meds Orders: Active Orders 24 hr Category Date Time Status Peripheral IV Care [RC] . DIRECTED Care 10/30/20 14:15 Active C DIFFICILE PCR W/REFLEX [MOLEC] Stat Lab 10/30/20 16:12 Ordered OVA & PARASITES BY IMMUNOASSAY [MREF] Stat Lab 10/30/20 16:13 Ordered STOOL CULTURE/SHIGA TOXIN [MREF] Stat Lab 10/30/20 16:10 Ordered Sodium Chloride 0.9% [Saline Flush] Med 10/30/20 14:15 Active 10 ml FLUSH ASDIRECTED PRN ED Antiemetic Medication Reflex [OM.PC] Stat Oth 10/30/20 14:15 Ordered Peripheral IV Insertion Adult [OM.PC] Stat Oth 10/30/20 14:15 Ordered Medication Orders Sodium Chloride (Saline Flush) 10 ml FLUSH ASDIRECTED PRN PRN Reason: Keep Vein Open Last Admin: 10/30/20 15:00 Dose: 10 ml Documented by: CLIFF Labs: Laboratory Tests 10/30/20 10/30/20 10/30/20 Range/Units 14:02 14:02 14:02 WBC 7.67 (3.98-10.04) K/mm3 RBC 5.03 (3.98-5.22) M/mm3 Hgb 14.9 (11.2-15.7) gm/dl Hct 45.1 H (34.1-44.9) % MCV 89.7 (79.4-94.8) fl MCH 29.6 (25.6-32.2) pg MCHC 33.0 (32.2-35.5) g/dl RDW Std Deviation 41.2 (36.4-46.3) fL Plt Count 175 L (182-369) K/mm3 MPV 11.0 (9.4-12.3) fl Neut % (Auto) 88.2 H (34.0-71.1) % Lymph % (Auto) 9.1 L (19.3-51.7) % [place] % (Auto) 2.1 L (4.7-12.5) % Eos % (Auto) 0 L (0.7-5.8) Baso % (Auto) 0.3 (0.1-1.2) % Neut # (Auto) 6.77 H (1.56-6.13) K/mm3 Lymph # (Auto) 0.70 L (1.18-3.74) K/mm3 [place] # (Auto) 0.16 L (0.24-0.36) K/mm3 Eos # (Auto) 0.00 L (0.04-0.36) K/mm3 Baso # (Auto) 0.02 (0.01-0.08) K/mm3 Manual Slide Review Normal smear Sodium 144 (136-145) mEq/L Potassium 3.9 (3.5-5.1) mEq/L Chloride 105 (98-107) mEq/L Carbon Dioxide 28 (21-32) mEq/L Anion Gap 14.9 (5-15) BUN 19 H (7-18) mg/dL Creatinine 0.9 (0.55-1.02) mg/dL Est Cr Clr Drug Dosing 56.68 mL/min Estimated GFR (MDRD) > 60 (>60) mL/min BUN/Creatinine Ratio 21.1 H (14-18) Glucose 132 H (80-115) mg/dL Calcium 9.5 (8.5-10.1) mg/dL Total Bilirubin 0.6 (0.2-1.0) mg/dL AST 16 (15-37) U/L ALT 26 (14-59) U/L Alkaline Phosphatase 74 (46-116) U/L C-Reactive Protein 0.5 (<1.0) mg/dL Total Protein 8.0 (6.4-8.2) g/dl Albumin 4.1 (3.4-5.0) g/dl Globulin 3.9 gm/dL Albumin/Globulin Ratio 1.1 (1-2) Lipase 118 (73-393) U/L Urine Color (Yellow) Urine Appearance (Clear) Urine pH (5.0-8.0) Ur Specific [place] (1.005-1.030) Urine Protein (Negative) Urine Glucose (UA) (Negative) Urine Ketones (Negative) Urine Occult Blood (Negative) Urine Nitrite (Negative) Urine Bilirubin (Negative) Urine Urobilinogen (0.2-1.0) Ur Leukocyte Esterase (Negative) Urine RBC (0-5) /hpf Urine WBC (0-5) /hpf Ur Squamous Epith Cells (0-5) /hpf Urine Bacteria (FEW) /hpf Urine Mucus (FEW) /hpf 10/30/20 Range/Units 16:35 WBC (3.98-10.04) K/mm3 RBC (3.98-5.22) M/mm3 Hgb (11.2-15.7) gm/dl Hct (34.1-44.9) % MCV (79.4-94.8) fl MCH (25.6-32.2) pg MCHC (32.2-35.5) g/dl RDW Std Deviation (36.4-46.3) fL Plt Count (182-369) K/mm3 MPV (9.4-12.3) fl Neut % (Auto) (34.0-71.1) % Lymph % (Auto) (19.3-51.7) % [place] % (Auto) (4.7-12.5) % Eos % (Auto) (0.7-5.8) Baso % (Auto) (0.1-1.2) % Neut # (Auto) (1.56-6.13) K/mm3 Lymph # (Auto) (1.18-3.74) K/mm3 [place] # (Auto) (0.24-0.36) K/mm3 Eos # (Auto) (0.04-0.36) K/mm3 Baso # (Auto) (0.01-0.08) K/mm3 Manual Slide Review Sodium (136-145) mEq/L Potassium (3.5-5.1) mEq/L Chloride (98-107) mEq/L Carbon Dioxide (21-32) mEq/L Anion Gap (5-15) BUN (7-18) mg/dL Creatinine (0.55-1.02) mg/dL Est Cr Clr Drug Dosing mL/min Estimated GFR (MDRD) (>60) mL/min BUN/Creatinine Ratio (14-18) Glucose (80-115) mg/dL Calcium (8.5-10.1) mg/dL Total Bilirubin (0.2-1.0) mg/dL AST (15-37) U/L ALT (14-59) U/L Alkaline Phosphatase (46-116) U/L C-Reactive Protein (<1.0) mg/dL Total Protein (6.4-8.2) g/dl Albumin (3.4-5.0) g/dl Globulin gm/dL Albumin/Globulin Ratio (1-2) Lipase (73-393) U/L Urine Color Yellow (Yellow) Urine Appearance Clear (Clear) Urine pH 6.0 (5.0-8.0) Ur Specific [place] 1.015 (1.005-1.030) Urine Protein Negative (Negative) Urine Glucose (UA) Negative (Negative) Urine Ketones 1+ H (Negative) Urine Occult Blood Negative (Negative) Urine Nitrite Negative (Negative) Urine Bilirubin Negative (Negative) Urine Urobilinogen 0.2 (0.2-1.0) Ur Leukocyte Esterase Negative (Negative) Urine RBC 0-5 (0-5) /hpf Urine WBC 0-5 (0-5) /hpf Ur Squamous Epith Cells 0-5 (0-5) /hpf Urine Bacteria Few (FEW) /hpf Urine Mucus Few (FEW) /hpf Meds: Medications Generic Name Dose Route Start Last Admin Trade Name Betty PRN Reason Stop Dose Admin Sodium Chloride 10 ml 10/30/20 14:15 10/30/20 15:00 Saline Flush FLUSH 10 ml ASDIRECTED PRN Administration Keep Vein Open Discontinued Medications Generic Name Dose Route Start Last Admin Trade Name Betty PRN Reason Stop Dose Admin Diphenhydramine HCl 25 mg 10/30/20 16:15 10/30/20 16:20 Benadryl IVPUSH 10/30/20 16:16 25 mg ONETIME ONE Administration Hydromorphone HCl 1 mg 10/30/20 14:16 10/30/20 14:36 Dilaudid IVPUSH 10/30/20 14:17 1 mg ONETIME ONE Administration Hydromorphone HCl 0.5 mg 10/30/20 16:02 10/30/20 16:09 Dilaudid IVPUSH 10/30/20 16:03 0.5 mg ONETIME ONE Administration Sodium Chloride 1,000 mls @ 1,000 mls/hr 10/30/20 14:15 10/30/20 14:38 Normal Saline IV 10/30/20 15:14 1,000 mls/hr .BOLUS STA Administration Iopamidol 100 ml 10/30/20 14:33 10/30/20 15:00 Isovue-300 (61%) IVPUSH 10/30/20 14:34 100 ml ONETIME ONE Administration Metoclopramide HCl 10 mg 10/30/20 16:12 10/30/20 16:18 Reglan IVPUSH 10/30/20 16:13 10 mg ONETIME ONE Administration Ondansetron HCl 4 mg 10/30/20 14:15 10/30/20 14:33 Zofran IVPUSH 10/30/20 14:16 4 mg ONETIME ONE Administration Sodium Chloride 10 ml 10/30/20 14:33 10/30/20 14:35 Saline Flush FLUSH 10/30/20 14:34 10 ml ONETIME ONE Administration - Re-Assessments/Exams Free Text/Narrative Re-Assessment/Exam: 10/30/20 16:[address] Wilson the GI specialist hospice care transitions coordinator for [facility] and he thinks this is infectious and he does not want me to start antibiotics. He wants stool studies and to have her call Dr Lockett's office in the morning to make a follow up appointment. She is having more nausea and pain. I have ordered dilaudid 0.5mg IV and reglan 10mg IV with benadryl 25mg IV. I will see if she can give us a stool sample. 10/30/20 17:10 She cannot give us a sample. I will send her some specimin cups. Departure - Departure Time of Disposition: 15:20 Condition: Good - Discharge Information *PRESCRIPTION DRUG MONITORING PROGRAM REVIEWED*: Not Applicable *COPY OF PRESCRIPTION DRUG MONITORING REPORT IN PATIENT ALVARO: Not Applicable Sepsis Event Note (ED) - Focused Exam Vital Signs: Vital Signs Temp Pulse Resp BP Pulse Ox 10/30/20 16:00 96.1 F L 70 16 95/60 100 10/30/20 13:57 97.1 F 86 18 128/76 100 - My Orders Last 24 Hours: My Active Orders 10/30/20 14:15 Peripheral IV Care [RC] . DIRECTED Sodium Chloride 0.9% [Saline Flush] 10 ml FLUSH ASDIRECTED PRN ED Antiemetic Medication Reflex [OM.PC] Stat Peripheral IV Insertion Adult [OM.PC] Stat 10/30/20 16:10 STOOL CULTURE/SHIGA TOXIN [MREF] Stat 10/30/20 16:12 C DIFFICILE PCR W/REFLEX [MOLEC] Stat 10/30/20 16:13 OVA & PARASITES BY IMMUNOASSAY [MREF] Stat - Assessment/Plan Last 24 Hours: My Active Orders 10/30/20 14:15 Peripheral IV Care [RC] . DIRECTED Sodium Chloride 0.9% [Saline Flush] 10 ml FLUSH ASDIRECTED PRN ED Antiemetic Medication Reflex [OM.PC] Stat Peripheral IV Insertion Adult [OM.PC] Stat 10/30/20 16:10 STOOL CULTURE/SHIGA TOXIN [MREF] Stat 10/30/20 16:12 C DIFFICILE PCR W/REFLEX [MOLEC] Stat 10/30/20 16:13 OVA & PARASITES BY IMMUNOASSAY [MREF] Stat
[2020-10-30] MEDS ORDERED: Sodium Chloride 0.9% 10 ML Syringe FLUSH ONE (14:33)
[2020-10-30] MEDS ORDERED: Iopamidol 612 MG/ML 100 ML Bottle IVPUSH ONE (14:33)
--- NOTE | 2020-10-30 15:21 | CT ---
CT abdomen and pelvis Technique: Multiple axial sections were obtained from above the dome of the diaphragm inferiorly through the pubic symphysis. Intravenous contrast was utilized. No oral contrast has been given. Reconstructed coronal and sagittal images were obtained. Comparison: Prior CT abdomen and pelvis exam of 01/10/20. Findings: Visualized lung bases show nothing acute. Liver shows no focal parenchymal abnormality. Spleen appears within normal limits. Adrenal glands show no nodule. Pancreas shows no discrete abnormality. Gallbladder contains no calcified gallstones. Kidneys show symmetric contrast enhancement with no hydronephrosis or discrete mass being seen. Aorta shows no aneurysm. No retroperitoneal adenopathy or mesenteric abnormalities are seen. No pelvic mass or adenopathy is appreciated. No free fluid or inflammatory change is appreciated. Colon shows diffuse wall thickening raising the possibility of diffuse colitis. Appendix is not visualized with certainty. Bone window settings were reviewed which appear within normal limits for the patient's age. Impression: 1. Diffuse bowel wall thickening appears to be present throughout the colon suspicious for diffuse colitis. Consider endoscopy to further evaluate. 2. No other acute abnormality is appreciated. Diagnostic code #3
[2020-10-30] MEDS ORDERED: HYDROmorphone 0.5 MG/0.5 ML Syringe IVPUSH ONE (16:02)
[2020-10-30 16:06] VITALS: BP 95/60; PULSE 70
[2020-10-30] MEDS ORDERED: Metoclopramide 10 MG/2 ML SDV IVPUSH ONE (16:12)
[2020-10-30] MEDS ORDERED: diphenhydrAMINE 50 MG/ML SDV IVPUSH ONE (16:15)
== END 2020-10-30 17:50 | disposition home or self-care (01) ==
LOC: JD.ED 13:49
DX: K52.9 Noninfective gastroenteritis and colitis, unspecified (principal); G44.89 Other headache syndrome; Z91.018 Allergy to other foods; Z91.011 Allergy to milk products; Z91.048 Other nonmedicinal substance allergy status
CPT/HCPCS: 36415; 74177; 80053; 81001; 83690; 85025; 86140; 96374; 96375; 96376; 99284; J1170; J1200; J2405; J2765; J7030; Q9967

== ENCOUNTER 2021-04-27 20:16 | Emergency (ER) | payer BC ==
[2021-04-27 20:32] VITALS: BP 136/80; PULSE 83
[2021-04-27] MEDS ORDERED: Metoclopramide 10 MG/2 ML SDV IVPUSH ONE (21:02)
[2021-04-27] MEDS ORDERED: diphenhydrAMINE 50 MG/ML SDV IVPUSH ONE (21:02)
[2021-04-27] MEDS ORDERED: Ketorolac 30 MG/ML SDV IVPUSH ONE (21:02)
[2021-04-27] MEDS ORDERED: Sodium Chloride 0.9% 1,000 ML IV ONE (21:02)
[2021-04-27] MEDS ORDERED: Sodium Chloride 0.9% 10 ML Syringe FLUSH PRN (21:02)
--- NOTE | 2021-04-27 21:20 | EDM.PDOC ---
ED HPI GENERAL MEDICAL PROBLEM - General Chief Complaint: Headache Stated Complaint: MIGRAINE VOMITING Time Seen by Provider: 04/27/21 21:02 Source of Information: Reports: Patient, RN Notes Reviewed History Limitations: Reports: No Limitations - History of Present Illness INITIAL COMMENTS - FREE TEXT/NARRATIVE: Patient is a 60-year-old female presents to the ER for her migraine headache. Patient notes that she does have a history of migraines, and took Imitrex a few times over the last few days, but she did not want to overdo it so she did not take any today. She did take some Tylenol severe congestion medications this morning as she does feel like she is having some sinus issues as well. Patient states that the headache is typical for her, and does not seem to be much different or worse. Does have some associated nausea and vomiting, some light sensitivity and sound sensitivity. This does seem to be in a headband type distribution. Primary care provider is Nurys Gonsalez, and she does have 2 providers in [place] that manage her migraines. Patient denies any other sick- like symptoms, fever/chills, cough/shortness of breath, nausea/vomiting/diarrhea. Headache Pain Score (Numeric/FACES): 10 - Related Data Allergies Allergy/AdvReac Type Severity Reaction Status Date / Time alfalfa Allergy Headache Verified 04/27/21 20:32 banana Allergy Headache Verified 04/27/21 20:32 harrison Allergy Headache Verified 04/27/21 20:32 cantaloupe Allergy Headache Verified 04/27/21 20:32 celery Allergy Headache Verified 04/27/21 20:32 redding Allergy Headache Verified 04/27/21 20:32 chocolate flavor Allergy Headache Verified 04/27/21 20:32 cranberry Allergy Headache Verified 04/27/21 20:32 lentils Allergy Headache Verified 04/27/21 20:32 milk Allergy Headache Verified 04/27/21 20:32 pumpkin Allergy Headache Verified 04/27/21 20:32 sesame seed Allergy Headache Verified 04/27/21 20:32 tomato Allergy Headache Verified 04/27/21 20:32 tree nut [Pecans] Allergy Headache Verified 04/27/21 20:32 walnut Allergy Headache Verified 04/27/21 20:32 Yeast Allergy Headache Verified 04/27/21 20:32 Home Meds: Home Meds Acetaminophen [Mapap] 500 mg PO DAILY PRN 04/25/16 [History] Clobetasol [Clobetasol 0.05%] 1 appful VAG ASDIRECTED 02/11/16 [History] Estrogens, Conjugated [Premarin Vaginal Crm] 1 appful VAG ASDIRECTED 02/11/16 [History] SUMAtriptan [Imitrex] 100 mg PO DAILY PRN 01/10/20 [History] guaiFEN/Phenyleph/Acetaminophn [Sudafed PE Head Cngst-Mucus Tb] 1 tab PO Q4HR PRN 01/10/20 [History] Ondansetron [Zofran ODT] 4 mg PO Q6H PRN #20 tab.dis 10/30/20 [Rx] traMADol [Ultram] 50 - 100 mg PO Q6H PRN #15 tab 10/30/20 [Rx] Past Medical History HEENT History: Reports: Impaired Vision Other HEENT History: wears glasses Respiratory History: Reports: SOB Gastrointestinal History: Reports: Diverticulosis, GERD 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 Musculoskeletal History: Reports: Other (See Below) Other Musculoskeletal History: frozen shoulder, tendonitis in wrist Neurological History: Reports: Migraines Psychiatric History: Reports: Anxiety - Infectious Disease History Infectious Disease History: Reports: C-Difficile, Chicken Pox, Measles - Past Surgical History HEENT Surgical History: Reports: Cataract Surgery, Naso-Sinus Surgery GI Surgical History: Reports: Appendectomy, Colonoscopy, EGD Other GI Surgeries/Procedures: laparoscopy Female Surgical History: Reports: Hysterectomy, Other (See Below) Other Female Surgeries/Procedures: laparoscopy x 2 for endometriosis Musculoskeletal Surgical History: Reports: None Social & Family History - Family History Family Medical History: No Pertinent Family History - Tobacco Use Tobacco Use Status *Q: Never Tobacco User Second Hand Smoke Exposure: No - Caffeine Use Caffeine Use: Reports: Coffee - Recreational Drug Use Recreational Drug Use: No - Living Situation & Occupation Living situation: Reports: , with Family Occupation: Unemployed ED ROS GENERAL - Review of Systems Review Of Systems: Comprehensive ROS is negative, except as noted in HPI. - Physical Exam Exam: See Below Exam Limited By: No Limitations General Appearance: Alert, WD/WN, No Apparent Distress Respiratory/Chest: No Respiratory Distress, Lungs Clear, Normal Breath Sounds, No Accessory Muscle Use, Chest Non-Tender Cardiovascular: Normal Peripheral Pulses, Regular Rate, Rhythm, No Edema GI/Abdominal: Normal Bowel Sounds, Soft, Non-Tender, No Distention, No Mass Neuro Exam (Abbreviated): Alert, Oriented, Normal Cognition, No Motor/Sensory Deficits Extremities: Normal Inspection, Normal Capillary Refill Psychiatric: Normal Affect, Normal Mood Skin Exam: Warm, Dry, Intact, Normal Color, No Rash Course - Vital Signs Last Recorded V/S: Last Vital Signs Temp 98 F 04/27/21 20:30 Pulse 83 04/27/21 20:30 Resp 18 04/27/21 20:30 BP 136/80 04/27/21 20:30 Pulse Ox 100 04/27/21 20:30 - Orders/Labs/Meds Orders: Active Orders 24 hr Category Date Time Status Peripheral IV Care [RC] . DIRECTED Care 04/27/21 21:02 Ordered Sodium Chloride 0.9% [Saline Flush] Med 04/27/21 21:02 Active 10 ml FLUSH ASDIRECTED PRN Peripheral IV Insertion Adult [OM.PC] Routine Oth 04/27/21 21:02 Ordered Medication Orders Sodium Chloride (Sodium Chloride 0.9% 10 Ml Syringe) 10 ml FLUSH ASDIRECTED PRN PRN Reason: Keep Vein Open Last Admin: 04/27/21 21:13 Dose: 10 ml Documented by: LASHAY Tang: Medications Generic Name Dose Route Start Last Admin Trade Name Freq PRN Reason Stop Dose Admin Sodium Chloride 10 ml 04/27/21 21:02 04/27/21 21:13 Sodium Chloride 0.9% 10 Ml Syringe FLUSH 10 ml ASDIRECTED PRN Administration Keep Vein Open Discontinued Medications Generic Name Dose Route Start Last Admin Trade Name Freq PRN Reason Stop Dose Admin Diphenhydramine HCl 25 mg 04/27/21 21:02 04/27/21 21:12 Diphenhydramine 50 Mg/Ml Sdv IVPUSH 04/27/21 21:03 25 mg ONETIME ONE Administration Sodium Chloride 1,000 mls @ 999 mls/hr 04/27/21 21:02 04/27/21 21:12 Normal Saline IV 04/27/21 22:02 999 mls/hr ASDIRECTED ONE Administration Ketorolac Tromethamine 30 mg 04/27/21 21:02 04/27/21 21:12 Ketorolac 30 Mg/Ml Sdv IVPUSH 04/27/21 21:03 30 mg ONETIME ONE Administration Metoclopramide HCl 10 mg 04/27/21 21:02 04/27/21 21:12 Metoclopramide 10 Mg/2 Ml Sdv IVPUSH 04/27/21 21:03 10 mg ONETIME ONE Administration - Re-Assessments/Exams Free Text/Narrative Re-Assessment/Exam: 04/27/21 21:19 Patient presents to the ED for her migraine headache, we will go ahead get IV started give her some IV fluids, IV Toradol, IV Benadryl, IV Reglan for initial management. 04/27/21 22:06 Patient was reassessed at bedside, and states she is feeling better, she was a little bit thirsty so I gave her some water to drink and she has been able to keep this down. Once her fluids are done we will discharge her home with general recommendations. Departure - Departure Time of Disposition: 22:06 Disposition: Home, Self-Care 01 Condition: Good Clinical Impression: Migraine Qualifiers: Migraine type: other Status migrainosus presence: without status migrainosus Intractability: not intractable Qualified Code(s): G43.809 - Other migraine, not intractable, without status migrainosus - Discharge Information *PRESCRIPTION DRUG MONITORING PROGRAM REVIEWED*: No *COPY OF PRESCRIPTION DRUG MONITORING REPORT IN PATIENT ALVARO: No Instructions: Recurrent Migraine Headache, [id number] Referrals: Bertha Gonsalez DIRECTOR [employer] [Primary Care Provider] - Forms: ED Department Discharge Additional Instructions: You were evaluated in the ED for your headache. You were given a combination of medications and IV fluid for management. This did seem to provide you pretty good relief of your symptoms. Recommend that you go home and rest in a quiet, darkened room. Try also to keep well hydrated. Please return to the ED if your symptoms should change or worsen. Sepsis Event Note (ED) - Evaluation Sepsis Screening Result: No Definite Risk - Focused Exam Vital Signs: Vital Signs Temp Pulse Resp BP Pulse Ox 04/27/21 20:30 98 F 83 18 136/80 100 - My Orders Last 24 Hours: My Active Orders 04/27/21 21:02 Peripheral IV Care [RC] . DIRECTED Sodium Chloride 0.9% [Saline Flush] 10 ml FLUSH ASDIRECTED PRN Peripheral IV Insertion Adult [OM.PC] Routine - Assessment/Plan Last 24 Hours: My Active Orders 04/27/21 21:02 Peripheral IV Care [RC] . DIRECTED Sodium Chloride 0.9% [Saline Flush] 10 ml FLUSH ASDIRECTED PRN Peripheral IV Insertion Adult [OM.PC] Routine
== END 2021-04-27 22:34 | disposition home or self-care (01) ==
LOC: JD.ED 20:16
DX: G43.809 Other migraine, not intractable, without status migrainosus (principal); Z91.018 Allergy to other foods; Z91.011 Allergy to milk products
CPT/HCPCS: 96374; 96375; 99283; J1200; J1885; J2765; J7030

== ENCOUNTER 2021-06-05 14:24 | Emergency (ER) | payer BC ==
[2021-06-05 14:39] VITALS: BP 134/75; PULSE 77
[2021-06-05] MEDS ORDERED: Metoclopramide 10 MG/2 ML SDV IVPUSH ONE (14:54)
[2021-06-05] MEDS ORDERED: diphenhydrAMINE 50 MG/ML SDV IVPUSH ONE (14:54)
[2021-06-05] MEDS ORDERED: HYDROmorphone 1 MG/ML Syringe IVPUSH ONE (14:54)
--- NOTE | 2021-06-05 14:58 | EDM.PDOC ---
ED HPI GENERAL MEDICAL PROBLEM - General Chief Complaint: Headache Stated Complaint: HEADACHE/VOMITING Time Seen by Provider: 06/05/21 14:53 Source of Information: Reports: Patient History Limitations: Reports: No Limitations - History of Present Illness INITIAL COMMENTS - FREE TEXT/NARRATIVE: 61-year-old female presents to the ED in the accompaniment of her mother. She presents due to a severe generalized headache that she awoke with this morning. Constant throbbing pulsating pain perhaps slightly worse in the right temporal scalp but is felt behind both eyes and down to the occiput of her head. Patient states it is similar to what she is experienced before with really bad migraines. Associated nausea and vomiting of bilious emesis. She did try Imitrex 0.5 mg early this morning and repeat shortly before noon without any relief. She believes the first dose was and vomited up. She did take some Benadryl for headache day before yesterday. She has not been able to eat or drink at all today. Feels lightheaded and dizzy upon standing and is very sensitive to light and sound. Denies any blurred vision. States she can walk normally other than being very sensitive to light. Onset: Today, Sudden Onset Date: 06/05/21 (Awoke with headache this morning.) Duration: Hour(s):, Constant, Other (Not improved with oral Imitrex.) Location: Reports: Head (Constant throbbing pounding headache) Quality: Reports: Ache ( particularly behind both eyes and occipital scalp.), Throbbing, Other Severity: Severe (Pulsating 10-10) Improves with: Reports: None Worsens with: Reports: Movement Context: Denies: Activity (Walking and standing make the headache worse.), Exercise, Lifting, Sick Contact, Trauma, Other Associated Symptoms: Reports: Loss of Appetite, Malaise, Nausea/Vomiting, Weakness (Generalized sense of weakness. It did not stay down today either.). 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 TEACHER: Reports: Acetaminophen Headache Pain Score (Numeric/FACES): 10 - Related Data Allergies Allergy/AdvReac Type Severity Reaction Status Date / Time alfalfa Allergy Headache Verified 06/05/21 14:35 banana Allergy Headache Verified 06/05/21 14:35 harrison Allergy Headache Verified 06/05/21 14:35 cantaloupe Allergy Headache Verified 06/05/21 14:35 celery Allergy Headache Verified 06/05/21 14:35 redding Allergy Headache Verified 06/05/21 14:35 chocolate flavor Allergy Headache Verified 06/05/21 14:35 cranberry Allergy Headache Verified 06/05/21 14:35 lentils Allergy Headache Verified 06/05/21 14:35 milk Allergy Headache Verified 06/05/21 14:35 pumpkin Allergy Headache Verified 06/05/21 14:35 sesame seed Allergy Headache Verified 06/05/21 14:35 tomato Allergy Headache Verified 06/05/21 14:35 tree nut [Pecans] Allergy Headache Verified 06/05/21 14:35 walnut Allergy Headache Verified 06/05/21 14:35 Yeast Allergy Headache Verified 06/05/21 14:35 Home Meds: Home Meds Acetaminophen [Mapap] 500 mg PO DAILY PRN 02/11/16 [History] Clobetasol [Clobetasol 0.05%] 1 appful VAG ASDIRECTED 02/11/16 [History] Estrogens, Conjugated [Premarin Vaginal Crm] 1 appful VAG ASDIRECTED 02/11/16 [History] SUMAtriptan [Imitrex] 100 mg PO DAILY PRN 01/10/20 [History] guaiFEN/Phenyleph/Acetaminophn [Sudafed PE Head Cngst-Mucus Tb] 1 tab PO Q4HR PRN 01/10/20 [History] Ondansetron [Zofran ODT] 4 mg PO Q6H PRN #20 tab.dis 10/30/20 [Rx] Past Medical History HEENT History: Reports: Cataract (Bilateral cataract extractions and intraocular lens implants.), Impaired Vision Other HEENT History: wears glasses Respiratory History: Reports: SOB Gastrointestinal History: Reports: Diverticulosis, GERD 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: Endometriosis Musculoskeletal History: Reports: Other (See Below) Other Musculoskeletal History: frozen shoulder, tendonitis in wrist Neurological History: Reports: Migraines (Recurrent migraines perhaps worse this last 2 months.) Psychiatric History: Reports: Anxiety - Infectious Disease History Infectious Disease History: Reports: C-Difficile, Chicken Pox, Measles - Past Surgical History HEENT Surgical History: Reports: Cataract Surgery, Naso-Sinus Surgery GI Surgical History: Reports: Appendectomy, Colonoscopy, EGD Other GI Surgeries/Procedures: laparoscopy Female Surgical History: Reports: Hysterectomy, Other (See Below) Other Female Surgeries/Procedures: laparoscopy x 2 for endometriosis Social & Family History - Family History Family Medical History: No Pertinent Family History - Tobacco Use Tobacco Use Status *Q: Former Tobacco User Used Tobacco, but Quit: Yes Month/Year Tobacco Last Used: 10/1989 - Caffeine Use Caffeine Use: Reports: Coffee - Recreational Drug Use Recreational Drug Use: No - Living Situation & Occupation Living situation: Reports: , with Family Occupation: Unemployed ED ROS GENERAL - Review of Systems Review Of Systems: See Below Constitutional: Reports: Malaise, Weakness, Fatigue, Decreased Appetite. Denies: Fever, Chills HEENT: Reports: Glasses Respiratory: Reports: No Symptoms Cardiovascular: Reports: No Symptoms Endocrine: Reports: Fatigue GI/Abdominal: Reports: Diarrhea (Stools are usually looser. She has multiple food intolerances), Nausea (Associated with migraine headaches.), Vomiting. Denies: Abdominal Pain, Anorexia, Black Stool, Bloody Stool : Reports: Frequency Musculoskeletal: Reports: Neck Pain, Shoulder Pain Skin: Reports: No Symptoms Neurological: Reports: Dizziness, Headache, Difficulty Walking (Due to light sensitivity.), Other (Sensitivity to sound and bright lights.). Denies: Confusion, Numbness, Syncope, Tingling, Trouble Speaking, Weakness Psychiatric: Reports: Other Hematologic/Lymphatic: Reports: No Symptoms (Does have disrupted sleep pattern and some degree of insomnia.) Immunologic: Reports: No Symptoms - Physical Exam Exam: See Below Exam Limited By: No Limitations General Appearance: Alert, WD/WN, Moderate Distress, Other (Feeling quite cold in her room. Covered with warm blankets. Temperature is 36.1 and she does not feel febrile. Heart rate 77 and sinus respiratory 16 with O2 sats of 100% room air. BP is 134/75.) Eye Exam: Bilateral Eye: Normal Inspection, PERRL Ears: Normal External Exam, Normal Canal, Hearing Grossly Normal, Normal TMs Nose: Normal Inspection, Normal Mucosa Throat/Mouth: Normal Inspection, Normal Lips, Normal Teeth, Normal Oropharynx Head Exam: Atraumatic, Normocephalic Neck: Normal Inspection, Supple, Non-Tender, Full Range of Motion. No: Lymphadenopathy (L), Lymphadenopathy (R) Respiratory/Chest: No Respiratory Distress, Lungs Clear, Normal Breath Sounds, No Accessory Muscle Use Cardiovascular: Normal Peripheral Pulses, Regular Rate, Rhythm, No Edema, No Gallop, No Murmur GI/Abdominal: Normal Bowel Sounds, Soft, Non-Tender, No Organomegaly, No Mass, Pelvis Stable Neuro Exam (Abbreviated): Alert, Oriented, CN II-XII Intact, Normal Cognition, No Motor/Sensory Deficits (Not evaluated). No: Normal Gait Extremities: Normal Inspection, Normal Range of Motion, Non-Tender, No Pedal Edema Psychiatric: Normal Affect, Normal Mood Skin Exam: Warm, Dry, Intact, Normal Color, No Rash Course - Vital Signs Last Recorded V/S: Last Vital Signs Temp 36.1 C 06/05/21 14:36 Pulse 77 06/05/21 14:36 Resp 16 06/05/21 14:36 BP 134/75 06/05/21 14:36 Pulse Ox 100 06/05/21 14:36 - Orders/Labs/Meds Labs: Laboratory Tests 06/05/21 Range/Units 15:25 SARS-CoV-2 RNA ([facility]) Negative (NEGATIVE) Meds: Medications Discontinued Medications Generic Name Dose Route Start Last Admin Trade Name Freq PRN Reason Stop Dose Admin Diphenhydramine HCl 25 mg 06/05/21 14:54 06/05/21 15:05 Diphenhydramine 50 Mg/Ml Sdv IVPUSH 06/05/21 14:55 25 mg ONETIME ONE Administration Hydromorphone HCl 1 mg 06/05/21 14:54 06/05/21 15:06 Hydromorphone 1 Mg/Ml Syringe IVPUSH 06/05/21 14:55 1 mg ONETIME ONE Administration Dextrose/Sodium Chloride 1,000 mls @ 999 mls/hr 06/05/21 15:00 06/05/21 15:04 Dextrose 5%-Normal Saline IV 999 mls/hr ASDIRECTED [place] Administration Ketorolac Tromethamine 30 mg 06/05/21 15:00 06/05/21 15:04 Ketorolac 30 Mg/Ml Sdv IVPUSH 30 mg ONETIME [place] Administration Metoclopramide HCl 7.5 mg 06/05/21 14:54 06/05/21 15:05 Metoclopramide 10 Mg/2 Ml Sdv IVPUSH 06/05/21 14:55 7.5 mg ONETIME ONE Administration - Radiology Interpretation Free Text/Narrative:: 61-year-old female presents to the ED with a bad migraine headache that she awoke with this morning. She feels constant throbbing pulsating pressure behind both eyes and occipital aspect of her scalp. This is fairly characteristic of her migraine headaches. She took Imitrex x2 this morning 1/2 tablet x 1 and this earliest morning 1 at noon with no relief of the pain. She believes the first when she vomited up. She had not kept any food or fluids down today. She rates her current pain is a 10 out of 10. She is very sensitive to sound and light. Neuro exam was otherwise normal. Plan IV D5 normal saline at open. She will be given Dilaudid 1 mg IV with Benadryl 25 mg IV, Toradol 30 mg IV and Reglan 7.5 mg IV for migraine headache control. - Re-Assessments/Exams Free Text/Narrative Re-Assessment/Exam: 06/05/21 17:16 Covid 19 screen is negative. Headache is for the most part gone or she rates it as a 1 out of 10. She will therefore be discharged home at this time. Hopefully she will be able to sleep for a few a couple hours when she gets home to break the headache cycle. I did crisis counselor her about COVID-19 vaccination but she was not interested in pursuing vaccination at this time. Departure - Departure Time of Disposition: 17:19 Disposition: Home, Self-Care 01 Condition: Fair Clinical Impression: Migraine headache Qualifiers: Migraine type: other Status migrainosus presence: without status migrainosus Intractability: not intractable Qualified Code(s): G43.809 - Other migraine, not intractable, without status migrainosus - Discharge Information *PRESCRIPTION DRUG MONITORING PROGRAM REVIEWED*: Not Applicable *COPY OF PRESCRIPTION DRUG MONITORING REPORT IN PATIENT ALVARO: Not Applicable Instructions: Migraine Headache Referrals: Bertha Gonsalez NP [Primary Care Provider] - Forms: ED Department Discharge Additional Instructions: Evaluation in the emergency room today primarily in regards to a severe headache that you awoke with this morning. Associated nausea and vomiting pattern of the headache compatible with your migraine headache that you have experienced in the past. Neurological exam was normal. Due to her reported sore throat in the ED a COVID-19 screen was also obtained and it proved to be negative. Treatment of the migraine headache was a liter of IV fluids with sugar since you have not been able to keep anything down today. You received Dilaudid 1 mg with Toradol 30 mg and Reglan 7.5 mg with Benadryl 25 mg IV for headache relief which proved to work fairly well. Suggest home to rest for couple of hours and then try and take in a bit of a diet as tolerated. May resume all usual meds per normal. Sepsis Event Note (ED) - Evaluation Sepsis Screening Result: No Definite Risk - Focused Exam Vital Signs: Vital Signs Temp Pulse Resp BP Pulse Ox 06/05/21 14:36 36.1 C 77 16 134/75 100
[2021-06-05] MEDS ORDERED: Ketorolac 30 MG/ML SDV IVPUSH SCH (15:00)
[2021-06-05] MEDS ORDERED: Dextrose 5%-0.9% NaCl 1,000 ML IV SCH (15:00)
== END 2021-06-05 17:30 | disposition home or self-care (01) ==
LOC: JD.ED 14:24
DX: G43.809 Other migraine, not intractable, without status migrainosus (principal); Z91.018 Allergy to other foods; Z91.010 Allergy to peanuts; Z91.011 Allergy to milk products; Z91.09 Other allergy status, other than to drugs and biological substances; Z87.891 Personal history of nicotine dependence; Z20.822 Contact with and (suspected) exposure to COVID-19
CPT/HCPCS: 87635; 96374; 96375; 99284; J1170; J1200; J1885; J2765; J7042; 99283; U0002

== ENCOUNTER 2022-12-17 17:20 | Emergency (ER) | payer BC ==
[2022-12-17 17:31] VITALS: BP 135/79; PULSE 105
[2022-12-17] MEDS ORDERED: Sodium Chloride 0.9% 1,000 ML IV ONE (18:02)
[2022-12-17] MEDS ORDERED: HYDROmorphone 0.5 MG/0.5 ML Syringe IVPUSH ONE (18:02)
[2022-12-17] MEDS ORDERED: diphenhydrAMINE 50 MG/ML SDV IVPUSH ONE (18:02)
[2022-12-17] MEDS ORDERED: Ketorolac 30 MG/ML SDV IVPUSH ONE (18:08)
[2022-12-17] MEDS ORDERED: Sodium Chloride 0.9% 10 ML Syringe FLUSH PRN (18:08)
[2022-12-17] MEDS ORDERED: Metoclopramide 10 MG/2 ML SDV IVPUSH ONE ×2 (18:08→22:21)
[2022-12-17 18:40] LABS: ESTIMATED GFR 72 mL/min (>60)
[2022-12-17] MEDS ORDERED: Meclizine 25 MG Tab PO ONE (21:03)
== END 2022-12-17 22:30 | disposition home or self-care (01) ==
LOC: JD.ED 17:20
DX: G43.909 Migraine, unspecified, not intractable, without status migrainosus (principal); R42 Dizziness and giddiness; Z91.018 Allergy to other foods; Z88.8 Allergy status to other drugs, medicaments and biological substances; Z91.011 Allergy to milk products; Z91.048 Other nonmedicinal substance allergy status
CPT/HCPCS: 36415; 70450; 80053; 85025; 86140; 96361; 96374; 96375; 96376; 99284; J1170; J1200; J1885; J2765; J3360; J3490; J7030